=== PATIENT | male | born 1965 | race Two or more races ===

== ENCOUNTER 2018-12-02 20:53 | Inpatient (IN) | payer OTHER ==
[~2018-12-02] VITALS: Ht 182.9 cm; Wt 101.6 kg
[2018-12-02 22:26] LABS: HEMATOCRIT 37 % (39-51); HEMOGLOBIN 12.1 g/dL (13.5-17.5); MEAN CORPUSCULAR HGB CONC 33 g/dl (31.0-36.0); NEUTROPHILS # (AUTO) 2.3 /CMM (1.8-8.9); PLATELET COUNT (AUTO) 222 /CMM (150-450)
[2018-12-02 22:34] LABS: BASOPHILS % (AUTO) 0.8 % (0.0-2.0); CALCIUM, SERUM 8.8 mg/dL (8.5-10.1); CARBON DIOXIDE 29 mmol/L (21-32); CHLORIDE 98 mmol/L (98-107); CREATININE 0.8 mg/dL (0.6-1.3); GLUCOSE 87 mg/dL (74-106); LYMPHOCYTES # (AUTO) 1.4 /CMM (0.8-4.8); LYMPHOCYTES % (AUTO) 30.8 % (20.0-44.0); MEAN CORPUSCULAR VOLUME 86 fL (80-96); MONOCYTES # (AUTO) 0.8 /CMM (0.1-1.30); MONOCYTES % (AUTO) 16.4 % (2.0-12.0); POTASSIUM 4.7 mmol/L (3.5-5.1); RED BLOOD CELL COUNT(AUTO) 4.29 MIL/uL (4.5-6.0); SODIUM SERUM 134 mmol/L (136-145); UREA NITROGEN, BLOOD 14 mg/dL (7-18); WHITE BLOOD COUNT (AUTO) 4.7 K/uL (4.3-11.0)
[2018-12-02 22:40] LABS: ALANINE AMINOTRANSFERASE 73 U/L (12-78); ALBUMIN 3.3 g/dL (3.4-5.0); ALKALINE PHOSPHATASE 94 U/L (46-116); ASPARTATE AMINOTRANSFERASE 125 U/L (15-37); BILIRUBIN,DIRECT 0.2 mg/dL (0.0-0.2); BILIRUBIN,TOTAL 0.5 mg/dL (0.2-1.0)
[2018-12-02 23:41] LABS: EOSINOPHILS % (MANUAL) 5 % (0-4); LYMPHOCYTES % (MANUAL) 35 % (16-48); MONOCYTES % (MANUAL) 11 % (0-11.0); NEUTROPHILS % (MANUAL) 49 (42-76)
[2018-12-03] MEDS ORDERED: TDAP [DIPH/PERTUSSIS/TET] 0.5 ML VIAL IM ONE ×2 (00:30→00:56)
[2018-12-03] MEDS ORDERED: ASPIRIN 325 MG TABLET ONE (00:55)
[2018-12-03] MEDS ORDERED: IV NS 0.9% 1,000 ML IV PRN (00:56)
[2018-12-03] MEDS ORDERED: MORPHINE SULFATE INJ 2 MG/ML DISP.SYRIN IV PRN (01:00)
[2018-12-03] MEDS ORDERED: ASPIRIN 325 MG TABLET PO ONE (01:00)
[2018-12-03] MEDS ORDERED: MAGNESIUM HYDROXIDE 30 ML UDC PO PRN (01:00)
[2018-12-03] MEDS ORDERED: TEMAZEPAM 15 MG CAPSULE PO PRN (01:00)
[2018-12-03] MEDS ORDERED: HYDROCODONE/APAP 5/325MG 1 EACH TABLET PO PRN (01:00)
[2018-12-03] MEDS ORDERED: MAG HYDROX/AL HYDROX/SIMETH 30 ML UDC PO PRN (01:00)
[2018-12-03] MEDS ORDERED: ONDANSETRON HCL/PF 4 MG/2 ML VIAL IVP PRN (01:00)
[2018-12-03] MEDS ORDERED: LORAZEPAM INJ 2 MG/ML VIAL IV PRN (01:00)
[2018-12-03] MEDS ORDERED: NITROGLYCERIN 0.4 MG/TAB BOTTLE SL ONE (01:00)
[2018-12-03] MEDS ORDERED: ACETAMINOPHEN 325 MG TABLET PO PRN (01:00)
[2018-12-03 02:30] VITALS: BP 103/40
[2018-12-03 05:00] VITALS: BP 95/59
[2018-12-03] MEDS ORDERED: PANTOPRAZOLE 40 MG TABLET.DR PO SCH (07:30)
[2018-12-03 08:00] VITALS: BP 137/62
[2018-12-03] MEDS ORDERED: THIAMINE HCL 100 MG TABLET PO SCH (09:00)
[2018-12-03] MEDS ORDERED: ASPIRIN 81 MG TAB.CHEW PO SCH (09:00)
[2018-12-03 16:03] VITALS: BP 122/67
[2018-12-03] MEDS ORDERED: IBUPROFEN 200 MG TABLET PO PRN (18:00)
== END 2018-12-03 18:30 | disposition home or self-care (01) | DRG 897 ==
LOC: ER 20:57 → TELE 12-03 01:27 → MED 12-03 10:42
DX: F10.129 Alcohol abuse with intoxication, unspecified (principal); E44.1 Mild protein-calorie malnutrition; Y90.6 Blood alcohol level of 120-199 mg/100 ml; I10 Essential (primary) hypertension; K21.9 Gastro-esophageal reflux disease without esophagitis; Z68.30 Body mass index [BMI] 30.0-30.9, adult; E88.09 Other disorders of plasma-protein metabolism, not elsewhere classified; Z59.0 Homelessness; S01.91XA Laceration without foreign body of unspecified part of head, initial encounter; W18.30XA Fall on same level, unspecified, initial encounter; Y92.89 Other specified places as the place of occurrence of the external cause; S60.511A Abrasion of right hand, initial encounter
CPT/HCPCS: 36415; 70450-TC; 71045-TC; 72125-TC; 80048-TC; 80076-TC; 84484-TC; 85025-TC; 85730-TC; 87081-TC; 90715; 93307-TC; G0378; G0480; J2060; J2270; J7030